=== PATIENT | female | born 1990 | race Two or more races ===

== ENCOUNTER 2018-09-23 15:24 | Emergency (ER) | payer MEDICAID ==
[~2018-09-23] VITALS: Ht 152.4 cm; Wt 111.1 kg
[~2018-09-23 15:24] MED LIST: ALBU2TAB4; METF-489 PO; PRENTAB28 PO; PROGSUP3 VA
[2018-09-23 17:21] VITALS: BP 102/83
[2018-09-23] MEDS ORDERED: cefTRIAXone SOD 1,000 MG VL IM ONE (17:45)
== END 2018-09-23 18:16 | disposition home or self-care (01) ==
LOC: ER 15:24
DX: J20.9 Acute bronchitis, unspecified (principal); J02.9 Acute pharyngitis, unspecified
CPT/HCPCS: 96372; 99283; J0696